=== PATIENT | female | born 1985 | race Hispanic/Latino ===

== ENCOUNTER 2019-11-29 21:57 | Emergency (ER) | payer OTHER, BC, SELFPAY ==
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
[2019-11-29 21:59] VITALS: BP 164/101; PULSE 81; RESP 20; TEMP 36.6; O2SAT 100
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
[2019-11-29] MEDS: KETOROLAC (*BKC) 60 MG/2 ML VIAL IM (22:43)
[2019-11-30 00:20] VITALS: BP 132/77; PULSE 77; RESP 18; O2SAT 98
== END 2019-11-30 00:21 | disposition home or self-care (01) ==
PROVIDERS: Emergency Provider Emergency Medicine; PCP Registered Nurse
DX: S39.012A Strain of muscle, fascia and tendon of lower back, initial encounter (principal); M54.16 Radiculopathy, lumbar region; V43.62XA Car passenger injured in collision with other type car in traffic accident, initial encounter; Z97.5 Presence of (intrauterine) contraceptive device
CPT/HCPCS: 72100; 81025; 96372; 99283; J1885

== ENCOUNTER 2021-02-06 18:46 | Emergency (ER) | payer OTHER, BC, SELFPAY ==
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
[2021-02-06 19:18] VITALS: BP 147/103; PULSE 80; RESP 18; TEMP 36.2; O2SAT 100
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
[2021-02-06] MEDS: ACETAMINOPHEN 500 MG TABLET 1000 MG PO (20:16)
[2021-02-06 21:27] VITALS: BP 140/99; PULSE 83; RESP 18; O2SAT 98
== END 2021-02-06 21:29 | disposition home or self-care (01) ==
PROVIDERS: Emergency Provider Emergency Medicine; PCP Registered Nurse
DX: S39.012A Strain of muscle, fascia and tendon of lower back, initial encounter (principal); Z97.5 Presence of (intrauterine) contraceptive device; M47.816 Spondylosis without myelopathy or radiculopathy, lumbar region; V49.40XA Driver injured in collision with unspecified motor vehicles in traffic accident, initial encounter
CPT/HCPCS: 72131; 81025; 99284; A9270

== ENCOUNTER 2023-12-31 10:43 | Outpatient (CLI) | payer MEDICAID, SELFPAY ==
--- NOTE | ~2023-12-31 | XR_ITS ---
Lumbosacral Spine: AP and lateral views Clinical History: Pain Findings: The normal lordotic curve is maintained. The vertebral bodies and posterior elements are i ntact. The intervertebral disc spaces are preserved. The sacroiliac joints are normally outlined. Impression: No significant abnormality. Reviewed, dictated and finalized at [facility]. Impression: No significant abnormality.
== END 2023-12-31 10:44 | disposition home or self-care (01) ==
PROVIDERS: PCP Registered Nurse; Visit Provider Registered Nurse
DX: M54.17 Radiculopathy, lumbosacral region (principal)
CPT/HCPCS: 72100

== ENCOUNTER 2024-01-13 08:05 | Outpatient (CLI) | payer OTHER, SELFPAY ==
--- NOTE | ~2024-01-13 | US_ITS ---
EXAMINATION: US abdomen complete DATE: 01/13/2024 08:51 INDICATION: Abnormal liver function tests. TECHNIQUE: Multiple grayscale and Doppler ultrasound images of the abdomen were obtained. COMPARISON: None FINDINGS: The visualized portions of the head of the pancreas are normal. The liver is normal without focal lesion. There is normal flow in main portal vein. The gallbladder is normal in size. No gallst ones or gallbladder wall thickening. There is no sonographic Ricci sign. The common duct is normal a nd measures 4 mm. The kidneys are normal in size. The spleen is normal in size. Abdominal aorta is no rmal in caliber. Inferior vena cava is normal. IMPRESSION: 1. Normal complete abdomen ultrasound. Reviewed, dictated and finalized at location A.
== END 2024-01-13 08:06 | disposition home or self-care (01) ==
PROVIDERS: PCP Registered Nurse; Visit Provider Registered Nurse
DX: R74.01 Elevation of levels of liver transaminase levels (principal)
CPT/HCPCS: 76700

== ENCOUNTER 2024-06-22 00:38 | Observation (INO) | payer SELFPAY ==
[2024-06-22] VITALS (8 sets, daily range): BP systolic 105–144; BP diastolic 38–94; PULSE 77–93; RESP 12–18; TEMP 36.1–37.4; O2SAT 94–100
--- NOTE | ~2024-06-22 | US_ITS ---
US pelvic complete w TV Ordering provider: Dread Caraballo MD History: . menorrhagia . Comparison: None. Technique: Transabdominal and endovaginal ultrasound of the pelvis (Doppler ultrasound interrogation techniques used as needed for this exam.) FINDINGS: CERVIX: Normal. UTERUS: Measures 9.4x 5x 5.6 cm in length which is within normal limits and is anteverted. No myomet rial masses. ENDOMETRIUM: Normal in thickness measuring 7 mm. No endometrial masses, or cysts. Minimal fluid is seen in the endometrial cavity. CUL DE SAC: Minimal free fluid. RIGHT OVARY: Normal in size measuring 3.5x 2.1x 2 centimeters. Normal echotexture. Doppler vascular f low present. Follicles are noted. LEFT OVARY: Normal in size measuring 3.1x 2x 1.8 cm. Normal echotexture. Doppler vascular flow presen t. Follicles are seen. ADNEXA: Normal. No mass. IMPRESSION: Minimal fluid in the cul-de-sac. Minimal fluid in the endometrial cavity Bilateral ovarian follicles. Otherwise, normal pelvic ultrasound. Reviewed, dictated and finalized at location A. IMPRESSION: Minimal fluid in the cul-de-sac. Minimal fluid in the endometrial cavity Bilate ral ovarian follicles. Otherwise, normal pelvic ultrasound.
[2024-06-22 00:55] LABS: Basophils Percent Auto 0.4 % (0.2-1.2); Eosinophils Absolute Auto 0.4 K/mm3 (0-0.3); Eosinophils Percent Auto 4.7 % (0-4.4); Hematocrit 36.1 % (37.0-47.0); Hemoglobin 11.5 g/dL (12.0-15.0); Immature Granulocyte Absolute 0.02 K/mm3 (0.00-0.031); Immature Granulocyte Percent A 0.3 % (0-0.5); Lymphocytes Absolute Auto 3.09 K/mm3 (0.9-3.2); Lymphocytes Percent Auto 40.1 % (18.3-44.2); Mean Corpuscular HGB Conc 31.9 g/dl (32-36); Mean Corpuscular Hemoglobin 28.4 pg (26-34); Mean Corpuscular Volume 89.1 fl (80-100); Mean Platelet Volume 11.3 fl (7.4-10.4); Monocytes Absolute Auto 0.7 K/mm3 (0.1-0.6); Monocytes Percent Auto 9.2 % (2.6-8.5); Neutrophils Absolute Auto 3.5 K/mm3 (1.3-6.7); Neutrophils Percent Auto 45.3 % (45.5-73.1); Platelet Count Result 193 k/mm3 (150-375); Red Blood Count 4.05 M/mm3 (4.2-5.4); Red Cell Distribution Width 13.2 % (11.5-14.5); White Blood Count 7.7 K/mm3 (4.5-10.0)
[2024-06-22 00:56] LABS: BEDSIDEPREGUCG Negative (Negative)
[2024-06-22 01:13] LABS: INR 1.1
[2024-06-22 01:14] LABS: Partial Thromboplastin Time 31.9 Seconds (22.3-36.8)
[2024-06-22 01:20] LABS: Add Urine Microscopic? YES; Appearance Urine Turbid (Clear); Bilirubin Urine 2+ (Negative); Blood Urine 3+ (Negative); Color Urine Red (Yellow); Glucose Urine UA Negative (Negative); Ketones Urine Negative (Negative); Leukocyte Esterase Ur 1+ LEU/UL (Negative); Nitrate Urine Negative (Negative); Protein Urine 2+ mg/dL (Negative); Specific Grav Ur 1.025 (1.001-1.035)
[2024-06-22 01:22] LABS: Alanine Aminotransferase 36 U/L (6-35); Albumin Level 4.1 g/dL (3.5-5.1); Alkaline Phosphatase 171 U/L (38-126); Anion Gap 9 mmol/L (4-12); Aspartate Amino Transferase 40 U/L (14-36); Bilirubin,Total 0.4 mg/dL (0.2-1.3); Blood Urea Nitrogen 17 mg/dL (7-17); Calcium 8.9 mg/dL (8.4-10.2); Carbon Dioxide 29 mmol/L (22-30); Chloride 100 mmol/L (98-107); Estimated CRCL calculation 87 ml/min; Estimated Glomerular Filt Rate > 60; Glucose 112 mg/dL (65-110); Potassium 3.6 mmol/L (3.4-5.0); Sodium 138 mmol/L (137-145)
[2024-06-22 01:30] LABS: Bacteria Urine None Seen /hpf; Need Manual Microscopic Reviewed; Non Pathogenic Casts 0-2; RBC Urine >100 /hpf (0-2); Squamous Epithelial Cell Urine None Seen /hpf (Few); WBC Urine 0-5 /hpf (0-3)
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
[2024-06-22] MEDS: ESTROGENS, CONJUGATED 25 MG/5 ML VIAL IV PUSH ×3 (02:07→16:50)
[2024-06-22] MEDS: TRANEXAMIC ACID 1,000 MG/10 ML AMPUL 600 MG IV PUSH (02:07)
--- NOTE | 2024-06-22 03:27 | ADMGEN ---
This patient, Trinidad Hahn, was admitted to [facility] Surg Room 307-02. Patient/family oriented to hospital policies and general routines including ID bracelet, bed and alarms, visiting hours, pain management, procedures, bathroom and other care routines, personal items, smoking policy, room service/diet, and visiting hours. Information on how to activate the Rapid Response Team has been discussed. Patient/Family are encouraged to report perceived risks to care and to ask questions if they do not understand what they are told or what they should do.
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
[2024-06-22 08:40] LABS: Basophils Percent Auto 0.3 % (0.2-1.2); Eosinophils Absolute Auto 0.3 K/mm3 (0-0.3); Eosinophils Percent Auto 4.3 % (0-4.4); Hematocrit 32.4 % (37.0-47.0); Hemoglobin 10.4 g/dL (12.0-15.0); Immature Granulocyte Absolute 0.02 K/mm3 (0.00-0.031); Immature Granulocyte Percent A 0.3 % (0-0.5); Lymphocytes Absolute Auto 1.81 K/mm3 (0.9-3.2); Lymphocytes Percent Auto 28.7 % (18.3-44.2); Mean Corpuscular HGB Conc 32.1 g/dl (32-36); Mean Corpuscular Hemoglobin 28.5 pg (26-34); Mean Corpuscular Volume 88.8 fl (80-100); Mean Platelet Volume 11.3 fl (7.4-10.4); Monocytes Absolute Auto 0.5 K/mm3 (0.1-0.6); Monocytes Percent Auto 8.6 % (2.6-8.5); Neutrophils Absolute Auto 3.7 K/mm3 (1.3-6.7); Neutrophils Percent Auto 57.8 % (45.5-73.1); Platelet Count Result 172 k/mm3 (150-375); Red Blood Count 3.65 M/mm3 (4.2-5.4); Red Cell Distribution Width 13.3 % (11.5-14.5); White Blood Count 6.3 K/mm3 (4.5-10.0)
[2024-06-22] MEDS: ACETAMINOPHEN 325 MG TABLET PO (18:23)
[2024-06-23 05:53] VITALS: BP 133/76; PULSE 90; RESP 14; TEMP 37.6; O2SAT 99
[2024-06-23 09:33] LABS: Hematocrit 30.5 % (37.0-47.0); Hemoglobin 9.6 g/dL (12.0-15.0); Mean Corpuscular HGB Conc 31.5 g/dl (32-36); Mean Corpuscular Hemoglobin 28.4 pg (26-34); Mean Corpuscular Volume 90.2 fl (80-100); Mean Platelet Volume 11.4 fl (7.4-10.4); Platelet Count Result 213 k/mm3 (150-375); Red Blood Count 3.38 M/mm3 (4.2-5.4); Red Cell Distribution Width 13.3 % (11.5-14.5); White Blood Count 8.7 K/mm3 (4.5-10.0)
[2024-06-23] MEDS: ESTROGENS, CONJUGATED 25 MG/5 ML VIAL IV PUSH ×3 (10:10→21:31)
[2024-06-23] MEDS: medroxyPROGESTERone ACETATE 10 MG TABLET PO (10:11)
--- NOTE | 2024-06-23 11:28 | PC.NURSE ---
Documentation under the name of Shira Zuniga on 06/22/24 from [id number] was done by Angelika Mcdaniel. Signing out and logging in was not done correctly at shift change.
[2024-06-23 14:00] VITALS: BP 130/76; PULSE 63; RESP 20; TEMP 37.3; O2SAT 96
--- NOTE | 2024-06-23 14:15 | PM.GYNPNOP ---
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 Hemoglobin has dropped on consecutive day. She still remained stable. Consider transfusion with 1 unit of packed red blood cells. Patient will continue IV estrogen add progesterone. Considering endometrial ablation tomorrow if bleeding persists. We will have to do this with bilateral salpingectomy. Time Spent With Patient Time: Total time spent is greater than 50% in coordination of care (as documented) at patient's floor/unit and/or counseling patient: Time with patient: less than 15 minutes REAL ESTATE AGENT- PN:Subj Post-Op Subjective Date/time seen: 06/23/24 14:15 Interval history: She denies any shortness of breath, denies any dizziness, denies any fatigue. She has noticed diminished bleeding. There was still some present but it has improved significantly. She denies any nausea, vomiting, fever, chills. She denies any chest pain. Review of Systems Review of Systems: All systems reviewed & are unremarkable except as noted in HPI and below Constitutional: Constitutional: Denies chills, Denies fatigue, Denies fever(s) and Denies weakness Eyes: Eyes: Denies blurry vision, Denies change in vision, Denies loss of peripheral vision, Denies loss of vision, Denies other visual disturbances and Denies eye pain ENT: Denies vertigo, Denies dizziness, Denies hearing loss, Denies mouth pain, Denies nasal obstruction, Denies neck mass and Denies neck pain Cardiovascular: Cardiovascular: Denies chest pain, Denies diaphoresis, Denies syncope, Denies leg edema and Denies dyspnea Respiratory: Respiratory: Denies chest congestion, Denies cough, Denies hemoptysis, Denies dyspnea and Denies wheezing Gastrointestinal: Gastrointestinal: Denies abdominal pain, Denies constipation, Denies diarrhea, Denies nausea and Denies vomiting Genitourinary: Genitourinary: Denies hematuria, Denies change in libido, Denies nocturia, Denies genital lesions, Denies flank pain and Denies urinary urgency Musculoskeletal: Musculoskeletal: Denies abnormal gait, Denies back pain, Denies myalgias, Denies arthralgias, Denies joint swelling, Denies muscle weakness and Denies neck pain Integumentary/Breasts: Skin/Breast: Denies swelling, Denies breast pain, Denies breast mass, Denies dry skin, Denies nipple discharge, Denies unusual bruising and Denies jaundice Neurologic: Denies Neuro-related abnormal movements, Denies Abnormal speech present, Denies abnormal gait, Denies behavioral changes, Denies confusion, Denies vertigo, Denies dizziness, Denies syncope, Denies loss of vision, Denies memory loss, Denies convulsions and Denies weakness Psychiatric: Psychiatric: Denies abnormal sleep pattern, Denies behavioral changes, Denies change in libido, Denies confusion, Denies depression, Denies anhedonia and Denies memory loss Endocrine: Endocrine: Reports no additional endocrine complaints, Denies change in libido and Denies fatigue Hematologic/Lymphatic: Hematologic/Lymphatic: Reports no additional hematologic/lymphatic complaints Allergic/Immunologic: Allergic/Immunologic: Reports no additional allergic/immunologic complaints and Denies wheezing Exam Const: General: cooperative, healthy appearing, comfortable and no acute distress Orientation/consciousness: oriented to person, oriented to place and oriented to time HENMT: Head: normal to inspection Ears: external ears normal Face/Nose/Sinus: Normal external nose present and normal facial exam Face and sinus: normal facial exam Eyes: General: appearance normal, both eyes and all related structures Neck: Neck: normal visual inspection, trachea midline and supple Resp: Auscultation: clear to auscultation bilaterally, no crackles, no rales, no rhonchi and no wheezes Cardio: Rate: regular rate Rhythm: regular r
[2024-06-23 21:55] VITALS: BP 126/80; PULSE 93; RESP 16; TEMP 36.9; O2SAT 99
[2024-06-24] MEDS: ESTROGENS, CONJUGATED 25 MG/5 ML VIAL IV PUSH (03:58)
[2024-06-24] MEDS: WATER, STERILE FOR INJECTION 10 ML VIAL XX (03:59)
[2024-06-24 06:00] VITALS: BP 114/62; PULSE 99; RESP 16; TEMP 37.2; O2SAT 98
[2024-06-24 07:32] LABS: Basophils Percent Auto 0.2 % (0.2-1.2); Eosinophils Absolute Auto 0.1 K/mm3 (0-0.3); Eosinophils Percent Auto 0.8 % (0-4.4); Hematocrit 25.5 % (37.0-47.0); Hemoglobin 8.1 g/dL (12.0-15.0); Immature Granulocyte Absolute 0.03 K/mm3 (0.00-0.031); Immature Granulocyte Percent A 0.3 % (0-0.5); Lymphocytes Absolute Auto 2.62 K/mm3 (0.9-3.2); Lymphocytes Percent Auto 29.7 % (18.3-44.2); Mean Corpuscular HGB Conc 31.8 g/dl (32-36); Mean Corpuscular Hemoglobin 28.3 pg (26-34); Mean Corpuscular Volume 89.2 fl (80-100); Mean Platelet Volume 10.7 fl (7.4-10.4); Monocytes Absolute Auto 0.6 K/mm3 (0.1-0.6); Monocytes Percent Auto 6.3 % (2.6-8.5); Neutrophils Absolute Auto 5.5 K/mm3 (1.3-6.7); Neutrophils Percent Auto 62.7 % (45.5-73.1); Platelet Count Result 184 k/mm3 (150-375); Red Blood Count 2.86 M/mm3 (4.2-5.4); Red Cell Distribution Width 13.3 % (11.5-14.5); White Blood Count 8.8 K/mm3 (4.5-10.0)
[2024-06-24] MEDS: medroxyPROGESTERone ACETATE 10 MG TABLET PO (09:41)
--- NOTE | 2024-06-24 12:18 | PM.GYNPNOP ---
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 Her bleeding is finally responded to IV estrogen. It is greatly diminished. We agreed that she could be discharged with oral contraceptive pills. A moderate tapering routine with 2 pills for 3 days and 1 subsequently. She will follow-up in just a few days. Time Spent With Patient Time: Total time spent is greater than 50% in coordination of care (as documented) at patient's floor/unit and/or counseling patient: Time with patient: 15 - 25 minutes FRUIT COORDINATOR- PN:Justus Post-Op Subjective Date/time seen: 06/24/24 12:18 patient reports marked decrease in the amount of vaginal bleeding. She feels that she could manage this bleeding at home. It is only occasionally that she has to change a pad. She denies any nausea, vomiting, fever, chills. Denies any chest pain shortness of breath. She denies any dizziness with ambulation. Interval history: She denies any shortness of breath, denies any dizziness, denies any fatigue. She has noticed diminished bleeding. There was still some present but it has improved significantly. She denies any nausea, vomiting, fever, chills. She denies any chest pain. Review of Systems Review of Systems: All systems reviewed & are unremarkable except as noted in HPI and below Constitutional: Constitutional: Denies chills, Denies fatigue, Denies fever(s) and Denies weakness Eyes: Eyes: Denies blurry vision, Denies change in vision, Denies loss of peripheral vision, Denies loss of vision, Denies other visual disturbances and Denies eye pain ENT: Denies vertigo, Denies dizziness, Denies hearing loss, Denies mouth pain, Denies nasal obstruction, Denies neck mass and Denies neck pain Cardiovascular: Cardiovascular: Denies chest pain, Denies diaphoresis, Denies syncope, Denies leg edema and Denies dyspnea Respiratory: Respiratory: Denies chest congestion, Denies cough, Denies hemoptysis, Denies dyspnea and Denies wheezing Gastrointestinal: Gastrointestinal: Denies abdominal pain, Denies constipation, Denies diarrhea, Denies nausea and Denies vomiting Genitourinary: Genitourinary: Denies hematuria, Denies change in libido, Denies nocturia, Denies genital lesions, Denies flank pain and Denies urinary urgency Musculoskeletal: Musculoskeletal: Denies abnormal gait, Denies back pain, Denies myalgias, Denies arthralgias, Denies joint swelling, Denies muscle weakness and Denies neck pain Integumentary/Breasts: Skin/Breast: Denies swelling, Denies breast pain, Denies breast mass, Denies dry skin, Denies nipple discharge, Denies unusual bruising and Denies jaundice Neurologic: Denies Neuro-related abnormal movements, Denies Abnormal speech present, Denies abnormal gait, Denies behavioral changes, Denies confusion, Denies vertigo, Denies dizziness, Denies syncope, Denies loss of vision, Denies memory loss, Denies convulsions and Denies weakness Psychiatric: Psychiatric: Denies abnormal sleep pattern, Denies behavioral changes, Denies change in libido, Denies confusion, Denies depression, Denies anhedonia and Denies memory loss Endocrine: Endocrine: Reports no additional endocrine complaints, Denies change in libido and Denies fatigue Hematologic/Lymphatic: Hematologic/Lymphatic: Reports no additional hematologic/lymphatic complaints Allergic/Immunologic: Allergic/Immunologic: Reports no additional allergic/immunologic complaints and Denies wheezing Exam Const: General: cooperative, healthy appearing, comfortable and no acute distress Orientation/consciousness: oriented to person, oriented to place and oriented to time HENMT: Head: normal to inspection Ears: external ears normal Face/Nose/Sinus: Normal external nose present and normal facial exam Face and sinus: normal facial exam Eyes: General: appearance normal, both eyes and all
--- NOTE | 2024-06-24 12:22 | PM.DS ---
DS: Admitting Diagnosis Discharge Date June 24, 2024 Admitting Diagnosis menorrhagia DS: Discharge Diagnosis Discharge Diagnosis (1) Menorrhagia: Code(s): N92.0 - Excessive and frequent menstruation with regular cycle Status: Acute DS: Summary Hospital Course Hospital Course: 39-year-old female who presents emergency department and was admitted for menorrhagia. She had severe vaginal bleeding. She was treated with IV estrogen for 3 days. Your bleeding improved gradually over that time. Is now manageable and she can be discharged home. She has been treated for 2 days. She is anemic. She declines any blood transfusion. She was given precautions on anemia and hypotension. She will follow-up in 4 days. She will continue be treated with a lower dose taper of oral contraceptive pills. Time Spent with Patient Time attestation: Total time spent providing and/or coordinating discharge services: DS: Data Data Completed and Pending Labs on day of discharge: Labs from last 24 hours 06/24/24 07:21 WBC 8.8 RBC 2.86 L Hgb 8.1 L Hct 25.5 L MCV 89.2 MCH 28.3 MCHC 31.8 L RDW 13.3 Plt Count 184 MPV 10.7 H Immature Gran % (Auto) 0.3 Neut % (Auto) 62.7 Lymph % (Auto) 29.7 Mcculloch % (Auto) 6.3 Eos % (Auto) 0.8 Baso % (Auto) 0.2 Lymph # (Auto) 2.62 Mcculloch # (Auto) 0.6 Eos # (Auto) 0.1 Baso # (Auto) 0.0 Abs Immat Gran (auto) 0.03 Absolute Neuts (auto) 5.5 Absolute Nucleated RBC 0.000 Nucleated RBC % 0.0 Preliminary micro results at discharge 06/22/24 00:52 Urine Culture - Preliminary Urine Clean Catch Group B Streptococcus isolated Coag neg Staph, not saprophyti Discharge Plan Discharge Consulting providers: Dread Caraballo Discharging Clinician: Dread Caraballo Patient Disposition: Home, Self-Care Activity: pelvic rest Diet: regular Patient Instructions: Antibiotic Form, Pain Management (DC) Stand Alone Forms: General Discharge Information Follow-up/Referrals: Dread Caraballo MD [Physician] - Discharge Medications: New norethindrone ac-eth estradiol [Aurovela 1.5 (21)] 1.5-30 mg-mcg tablet 1 tablet PO DAILY Qty: 28 0RF Rx Instructions: 2 pills for 3 days, and then 1 pill a day thereafter. Continued No Home Medications Date of admission: 06/22/24 01:50 Primary Care Provider: Olivia,Jovana Admitting Provider: Dread Caraballo Attending physician on admission: Dread aCraballo Condition: Stable
== END 2024-06-24 15:05 | disposition home or self-care (01) ==
LOC: ANHED 01:57 → ANH3MEDSUR 02:34
PROVIDERS: Admitting Provider Obstetrics & Gynecology; Emergency Provider Emergency Medicine; PCP Registered Nurse; Visit Provider Obstetrics & Gynecology
DX: N92.0 Excessive and frequent menstruation with regular cycle (principal); D64.9 Anemia, unspecified
CPT/HCPCS: 36415; 76830; 76856; 80053; 81001; 81025; 85025; 85027; 85610; 85730; 87077; 87086; 87088; 96374; 96375; 96376; 99285; A9270; G0378; G0379; J1410